=== PATIENT | female | born 1940 | race Caucasian/White ===

== ENCOUNTER 2021-07-10 20:03 | Emergency (ER) | payer MEDICARE, BC ==
--- NOTE | 2021-07-10 21:22 | US ---
INDICATION: Right leg pain and swelling COMPARISON: Right lower extremity venous ultrasound 04/27/2015 TECHNIQUE: A compression venous ultrasound exam was performed of the right lower extremity using hoang-scale imaging, color Doppler and spectral Doppler analysis. FINDINGS: The common femoral vein, proximal greater saphenous vein, deep femoral vein, superficial femoral vein, and popliteal vein are compressible and demonstrate normal phasic flow with augmentation. The calf veins are patent where visualized. Partial occlusive superficial venous thrombosis is noted in the right mid calf. IMPRESSION: 1. No evidence of right lower extremity deep venous thrombosis. 2. Superficial venous thrombus in the right calf. Dictated by Stevie Bates MD @ 07/10/2021 9:20:25 PM (Electronically Signed)
[2021-07-10 21:33] VITALS: BP 149/62; PULSE 64
--- NOTE | 2021-07-10 22:02 | EDM.PDOC ---
ED HPI GENERAL MEDICAL PROBLEM - General Chief Complaint: Lower Extremity Injury/Pain Stated Complaint: POSSIBLE BLOOD CLOT IN LEG, BACKUS HOSPITAL REFERRAL Time Seen by Provider: 07/10/21 21:24 - History of Present Illness INITIAL COMMENTS - FREE TEXT/NARRATIVE: CHIEF COMPLAINT(S): Possible blood clot. HISTORY OF PRESENT ILLNESS: This is an 80-year-old woman with a past medical history of hypertension who presents to the emergency department with right leg pain. The patient states that she was evaluated at outside hospital in [place]. He states that they referred her here to the emergency department to obtain an ultrasound to evaluate for a clot in her leg. She stated for the last 4 days she has been experiencing pain in her right leg. She describes the pain as achy and worse with movement located in her right anterior thigh and right anterior patel. She states the pain is worse with movement. 01/17. No radiation. She states that she has been using naproxen as needed for pain relief. She denies any swelling, redness, fever or chills. She denies any prior history of DVT or PE. She denies any injury to the leg. There are no relieving factors. She states that she is mainly concerned about a clot. REVIEW OF SYSTEMS: Constitutional: Denies fever, chills. Eyes: Denies eye pain Ears, Nose, Mouth, & Throat: Denies earache Cardiovascular: Denies chest pain Respiratory: Denies shortness of breath Gastrointestinal: Denies Nausea, vomiting, diarrhea, hematochezia. Genitourinary: Denies hematuria Skin:Denies a rash MSK: Positive for right leg pain. Denies swelling Neurological: Denies blurred vision Psychiatric: Denies depression PAST MEDICAL HISTORY: As per history of present illness and as reviewed below otherwise noncontributory. SURGICAL HISTORY: As per history of present illness and as reviewed below otherwise noncontributory. SOCIAL HISTORY: As per history of present illness and as reviewed below otherwise noncontributory. FAMILY HISTORY: As per history of present illness and as reviewed below otherwise noncontributory. EXAMINATION OF ORGAN SYSTEMS/BODY AREAS: Constitutional: Blood pressure 149/62, heart rate 64, respiratory rate 18 with an oxygen saturation of 94% on room air. Temperature 36.6. General: Well-appearing woman who is in no acute distress. Psychiatric: Appropriate mood and affect. Eyes: No scleral icterus or conjunctival erythema ENMT: Moist mucous membranes. No pharyngeal erythema Cardiovascular: Regular, rate, and rhythm. No gallops, murmurs, or rubs. Bilateral upper extremity and lower pulses symmetric and intact distally. No peripheral edema. No JVD. Respiratory: Lungs clear to auscultation bilaterally. No wheezes, rales, or rhonchi. Gastrointestinal: Soft, non-tender, non-distended. Normoactive bowel sounds Genitourinary: No suprapubic tenderness Musculoskeletal: Normal range of motion. There is tenderness to palpation along the right anterior patel otherwise no abnormality on examination. Patient has full range of motion of the hip, knee, ankle. Skin: The patient has some discoloration of her bilateral lower extremities distally consistent with peripheral vascular disease Neurological: Alert, GCS 15 distal sensation and strength intact. MEDICAL DECISION MAKING AND COURSE IN THE ED WITH INTERPRETATION/REVIEW OF DIAGNOSTIC STUDIES: This is a 80-year-old woman with a past medical history of hypertension who is in the emergency department with right leg pain who is neurovascularly intact. At this time we will get a duplex ultrasonography of the right lower extremity. Patient currently does not request any pain medications. I do not believe any further work-up is indicated. The radiological images were viewed by myself along with reading the report from the radiologist. Right lower extremity duplex study revealed no evidence of deep venous thrombosis. There is a superficial venous thrombus of the right calf. After imaging I did discuss the results with the patient at bedside. I encouraged the patient to use warm compresses for the superficial venous thrombus and to use Motrin or naproxen for pain relief. At this time I do not believe the superficial venous thrombus has anything to do with the patient's symptoms and I did discuss other symptomatic treatment at home. Did discuss strict return precautions and the patient was amenable to discharge at this time and had no other questions. DISPOSITION: The patient was discharged home in stable condition. The patient will follow up with primary care physician in 2 to 5 days CONDITION: Fair PROCEDURES: None FINAL IMPRESSION(S)/DIAGNOSES: 1. Acute right leg pain 2. Acute superficial venous thrombus of the right calf Felipe Garcia M.D. R leg Pain Score (Numeric/FACES): 4 - Related Data Allergies Allergy/AdvReac Type Severity Reaction Status Date / Time Sulfa (Sulfonamide Allergy Severe unknown Verified 07/10/21 21:22 Antibiotics) Home Meds: Home Meds Aspirin/Calcium Carbonate/Mag [Aspirin Buffered 325 mg Tab] 325 mg PO BID 04/27/15 [History] carvediloL [Carvedilol] 6.25 mg PO DAILY 07/10/21 [History] Past Medical History HEENT History: Reports: Impaired Vision Cardiovascular History: Reports: None Respiratory History: Reports: None Gastrointestinal History: Reports: None Genitourinary History: Reports: None [employer] History: Reports: Musculoskeletal History: Reports: Back Pain, Chronic, Osteoarthritis Neurological History: Reports: None Psychiatric History: Reports: None Endocrine/Metabolic History: Reports: None Hematologic History: Reports: None Immunologic History: Reports: None Oncologic (Cancer) History: Reports: None Dermatologic History: Reports: None - Infectious Disease History Infectious Disease History: Reports: None - Past Surgical History Head Surgeries/Procedures: Reports: None HEENT Surgical History: Reports: None GI Surgical History: Reports: Colonoscopy Musculoskeletal Surgical History: Reports: Hip Replacement, Other (See Below) Other Musculoskeletal Surgeries/Procedures:: Left Total Hip and Right Total Hip, back sx Social & Family History - Family History Family Medical History: No Pertinent Family History - Tobacco Use Tobacco Use Status *Q: Former Tobacco User Used Tobacco, but Quit: Yes Month/Year Tobacco Last Used: 1979 - Caffeine Use Caffeine Use: Reports: Coffee - Recreational Drug Use Recreational Drug Use: No Review of Systems - Review of Systems Review Of Systems: See Below ED EXAM, GENERAL - Physical Exam Exam: See Below Course - Vital Signs Last Recorded V/S: Last Vital Signs Temp 36.6 C 07/10/21 21:27 Pulse 64 07/10/21 21:27 Resp 18 07/10/21 21:27 BP 149/62 H 07/10/21 21:27 Pulse Ox 94 L 07/10/21 21:27 Departure - Departure Time of Disposition: 22:01 Disposition: Home, Self-Care 01 Condition: Fair Clinical Impression: Acute superficial venous thrombosis of right lower extremity, Leg pain - Discharge Information *PRESCRIPTION DRUG MONITORING PROGRAM REVIEWED*: No *COPY OF PRESCRIPTION DRUG MONITORING REPORT IN PATIENT CORINNA: No Instructions: Muscle Strain, [id number], Venous Thromboembolism Prevention, Heat Therapy, [id number] Referrals: Alonso Mcclain MD [Primary Care Provider] - Forms: ED Department Discharge Additional Instructions: Ms. Leom today you were evaluated on an emergent basis. Your ultrasound did not reveal any evidence of any deep venous thrombosis or clots in the deep veins of your leg. There was a superficial clot in the right calf for which she can place a warm compress on it multiple times a day. As discussed your pulses were good and you are able to feel me touch your right foot. At this time I do believe that you should use ice 10 minutes alternated with heating pad 10 minutes to the affected areas that hurt. In addition I would like you to use Tylenol 500 to 1000 mg every 6 hours for the next 2 days and then as needed after that. As discussed this could be secondary to peripheral vascular disease and I recommend that you follow-up with your primary care physician for further work-up if needed. Please return to the emergency department if you have any worsening symptoms such as a cold right leg, feel like there is no pulse in your right leg or having worsening pain. [facility] - Primary Care [address] [place] [address] [place] [address] The patient is informed of any results of their evaluation and diagnostic workup and all questions are answered. They are given discharge instructions and return precautions. The patient is stable for discharge. The patient states they understand and agree with the plan and that they will return if their symptoms get worse or if they have any new concerns. The following information is given to patients seen in the emergency department who are being discharged to home. This information is to outline your options for follow-up care. We provide all patients seen in our emergency department with a follow-up referral. The need for follow-up, as well as the timing and circumstances, are variable depending upon the specifics of your emergency department visit. If you don't have a primary care physician on staff, we will provide you with a referral. We always advise you to contact your personal physician following an emergency department visit to inform them of the circumstance of the visit and for follow-up with them and/or the need for any referrals to a consulting spe cialist. The emergency department will also refer you to a specialist when appropriate. This referral assures that you have the opportunity for follow-up care with a specialist. All of these measure are taken in an effort to provide you with optimal care, which includes your follow-up. Under all circumstances we always encourage you to contact your private physician who remains a resource for coordinating your care. When calling for follow-up care, please make the office aware that this follow-up is from your recent emergency room visit. If for any reason you are refused follow-up, please contact the [facility] Emergency Department at and asked to speak to the emergency department charge nurse. Sepsis Event Note (ED) - Evaluation Sepsis Screening Result: No Definite Risk
== END 2021-07-10 22:10 | disposition home or self-care (01) ==
LOC: MW.ED 20:03
DX: I82.811 Embolism and thrombosis of superficial veins of right lower extremity (principal); Z88.2 Allergy status to sulfonamides; Z79.82 Long term (current) use of aspirin; Z87.891 Personal history of nicotine dependence
CPT/HCPCS: 93971-26-RT; 93971-RT; 99283; 99283-25